=== PATIENT | male | born 1985 | race Caucasian/White ===

== ENCOUNTER 2021-04-12 08:15 | Emergency (ER) | payer BC, SELFPAY ==
[2021-04-12 08:16] VITALS: BP 120/90; PULSE 96; RESP 18; TEMP 36.9; O2SAT 98; BMI 27.1
--- NOTE | 2021-04-12 08:22 | XR_ITS ---
PROCEDURE: XR CHEST PORTABLE CLINICAL HISTORY: cough COMPARISON: No exams were available for comparison FINDINGS: The cardiomediastinal silhouette and pulmonary vascularity are within normal limits. The lungs are clear without infiltrates, suspicious nodules, or pleural effusions. No acute bony abnormalities. IMPRESSION: No acute findings. Dictated by: Get Mosher MD 04/12/2021 09:03 Get Mosher MD in [place] 04/12/2021 09:03
[2021-04-12 08:31] LABS: Influenza A, PCR Not Detected (NotDetected); Influenza B, PCR Not Detected (NotDetected)
--- NOTE | 2021-04-12 08:35 | HMH.EDFEV ---
ED Disposition Clinical Impression: Viral infection, COVID-19 Disposition: Home, Self-Care Condition on Discharge: Good Instructions: DI for COVID-19 (Suspected or Confirmed ) Referrals: Provider,Kameron, [Primary Care Provider] - Nelson Abdalla MD [Staff Physician] - - Critical Care Critical Care Time: No Attestation: On 04/12/21, the high probability of a clinically significant, sudden or life threatening deterioration of the following system(s) required my full and direct attention, intervention and personal management. The time I documented below is in addition to time spent performing reported procedures but includes the following listed in this critical care notation. Medical Decision Making - Medical Records Medical records reviewed: Yes: I reviewed the patient's medical records. - Louis Inquiry Pt receiving controlled substance: No Vital Signs: 04/12/21 08:16 Temperature 98.4 F Temperature Source Oral Pulse Rate [Radial] 96 H Respiratory Rate 18 Blood Pressure [Right Arm] 120/90 Blood Pressure Mean [Right Arm] 100 Blood Pressure Position [Right Arm] Sitting 02 Sat by Pulse Oximetry 98 Oxygen Delivery Method Room Air - Lab Data Lab Results 04/12/21 08:30: SARS-CoV-2 (PCR) Detected A, Influenza A Untype (PCR) Not detected, Influenza Type B (PCR) Not detected 04/12/21 08:40: WBC 5.9, RBC 5.76, Hgb 16.4, Hct 51.1, MCV 88.8, MCH 28.6, MCHC 32.2, RDW 13.1, Plt Count 268, MPV 6.5 L, Neut % (Auto) 66.7, Lymph % (Auto) 24.6, Yates % (Auto) 5.5, Eos % (Auto) 2.6, Baso % (Auto) 0.6, Neut # (Auto) 3.9, Lymph # (Auto) 1.5, Yates # (Auto) 0.3, Eos # (Auto) 0.2, Baso # (Auto) 0.0 04/12/21 08:40: Sodium 141, Potassium 4.4, Chloride 100, Carbon Dioxide 29, Anion Gap 16.4 H, BUN 10, Creatinine 1.40 H, Estimated Creat Clear 94, Estimated GFR 57 L, Est GFR ( Amer) 69, Glucose 101 H, Calcium 9.4, Total Bilirubin 0.5, AST 35, ALT 21, Alkaline Phosphatase 74, Total Protein 8.3 H, Albumin 4.8, Globulin 3.5 H, Albumin/Globulin Ratio 1.4 Result diagrams: 04/12/21 08:40 04/12/21 08:40 Orders (Tests/Meds): ED MEDICATIONS Generic Name Dose Route Start Last Admin Trade Name Freq PRN Reason Stop Dose Admin Sodium Chloride 1,000 mls @ 999 mls/hr 04/12/21 08:30 04/12/21 08:30 Sod Chlor 0.9% 1000ml Bag IV 04/12/21 09:30 999 mls/hr .[id number] EMMIE Administration Discontinued Medications Generic Name Dose Route Start Last Admin Trade Name Freq PRN Reason Stop Dose Admin Ketorolac Tromethamine 30 mg 04/12/21 08:22 04/12/21 08:30 Ketorolac 30mg/Ml Vial IV 04/12/21 08:23 30 mg ONCE ONE Administration - Radiology Data #1 Image(s): Chest Image Reviewed: Yes I reviewed the patient's radiology results, Yes I have reviewed radiologist's interpretation Preliminary Findings: Normal/NAD, No Infiltrates Seen - Reevaluation(s) Time: 09:16 Reevaluation #1: On reevaluation, the patient is feeling much better. Patient was positive for coronavirus. He is currently hemodynamically stable. No respiratory distress or hypoxia. Patient was given routine supplemental care precautions. Patient does need repeat examination in 48 hours. Given strict return precautions. Patient was also given current CDC guidelines for mandatory quarantine. Patient verbalized understanding. Medical Decision Narrative: 35-year-old male presenting with some myalgias, fever and cough. Patient symptoms appear to be consistent with a viral type syndrome. There is no respiratory distress. Hemodynamically stable. Afebrile. Work-up initiated. Fever HPI - General Chief Complaint: Fever Stated Complaint: flu symptoms Time Seen by Provider: 04/12/21 08:20 Mode of Arrival: Ambulatory Limitations: No Limitations Description of Symptoms (Recalled from ER Triage Doc. by RN): to ed per pvt car with c/o cough, fever, chills, generalized aches, headache starting monday. - History of Present Illness HPI Narra
[2021-04-12 08:54] LABS: Alanine Aminotransferase 21 U/L (12-78); Albumin Level 4.8 g/dl (3.5-5.0); Albumin/Globulin Ratio 1.4 (1.1-1.8); Alkaline Phosphatase 74 U/L (38-126); Anion Gap 16.4 mEq/L (5-15); Aspartate Amino Transferase 35 U/L (17-59); Bilirubin,Total 0.5 mg/dl (0.2-1.3); Blood Urea Nitrogen 10 mg/dl (9-20); Calcium 9.4 mg/dl (8.4-10.2); Carbon Dioxide 29 mmol/L (22.0-30.0); Chloride 100 mmol/L (98-107); Creatinine Clearance Estimated 94 mL/min (50-200); Estimated Glomerular Filt Rate 57 ml/min (>60); GFR (African American) 69 ML/MIN (>60); Globulin 3.5 g/dL (1.3-3.2); Glucose 101 mg/dl (74-100); Potassium 4.4 mmoL/L (3.5-5.1); Sodium 141 mmol/L (136-145); Total Protein,Serum 8.3 g/dl (6.3-8.2)
[2021-04-12 08:59] LABS: Basophils % 0.6 % (0.1-2.0); Eosinophils # 0.2 K/mm3 (0.0-0.4); Eosinophils % 2.6 % (0.1-12.0); Hematocrit 51.1 % (42.0-52.0); Hemoglobin 16.4 g/dL (14.1-18.0); Lymphocytes # 1.5 K/mm3 (0.7-4.5); Lymphocytes % 24.6 % (10-50); Mean Corpuscular HGB Conc 32.2 g/dL (31.8-35.4); Mean Corpuscular Hemoglobin 28.6 pg (27.0-31.2); Mean Corpuscular Volume 88.8 fl (80-94); Mean Platelet Volume 6.5 fl (7.4-10.4); Monocytes # 0.3 K/mm3 (0.1-1.0); Monocytes % 5.5 % (1.7-9.3); Neutrophils # 3.9 K/mm3 (1.8-7.8); Neutrophils % 66.7 % (37.0-80.0); Platelet Count 268 K/mm3 (142-424); Red Blood Count 5.76 M/mm3 (4.60-6.20); Red Cell Distribution Width 13.1 % (11.5-17.5); White Blood Count 5.9 K/mm3 (4.8-10.8)
[2021-04-12 08:59] LABS: Coronavirus 19, PCR Detected (NotDetected)
[2021-04-12 09:00] VITALS: BP 130/88; PULSE 88; RESP 18; TEMP 37.1; O2SAT 96
--- NOTE | 2021-04-12 09:01 | PC.NURSE ---
per billie in lab pt is covid positive, verified pt name and notified ER MD at this time
[2021-04-12 09:32] VITALS: BP 122/74; PULSE 88; RESP 18; TEMP 36.6; O2SAT 96
== END 2021-04-12 09:35 | disposition home or self-care (01) ==
PROVIDERS: Emergency Provider Emergency Medicine
DX: U07.1 COVID-19 (principal); B34.9 Viral infection, unspecified; J45.909 Unspecified asthma, uncomplicated; F17.210 Nicotine dependence, cigarettes, uncomplicated
CPT/HCPCS: 71045; 80053; 85025; 96365; 96375; 99283; U0003

== ENCOUNTER 2021-07-20 13:20 | Observation (INO) | payer BC, SELFPAY ==
[2021-07-20 14:32] VITALS: BP 115/69; PULSE 53; RESP 16; TEMP -12.5; TEMP 9.5; O2SAT 100; BMI 27.1
--- NOTE | 2021-07-20 14:54 | HMH.EDUTC ---
[facility] [place] Dis[place] Clinical Impression: Dyspnea, Dizziness Disposition: Still a Patient Condition on Discharge: Fair Referrals: Provider,Referral, [Primary Care Provider] - Time of Disposition: 14:59 Medical Decision Making - Medical Records Medical records reviewed: No: I reviewed the patient's medical records. - Louis Inquiry Pt receiving controlled substance: No Vital Signs: 07/20/21 14:32 Temperature 9.5 F L Temperature Source Temporal Artery Scan Pulse Rate [Right Brachial] 53 L Respiratory Rate 16 Blood Pressure [Right Arm] 115/69 Blood Pressure Mean [Right Arm] 84 Blood Pressure Source [Right Arm] Automatic Cuff Blood Pressure Position [Right Arm] Sitting 02 Sat by Pulse Oximetry 100 Oxygen Delivery Method Room Air Medical Decision Narrative: He was transferred to the ER due to his shortness of breath and dizziness. [facility] HPI - General Stated complaint: dizziness/faintness, soa Time Seen by Provider: 07/20/21 14:54 Mode of Arrival: Ambulatory Source of Information: Patient Limitations: No Limitations Description of Symptoms (Recalled from Triage Doc. by RN): dizziness-especially when standing for 2 days, shortness of breath today HEENT Symptoms (Recalled from RN notes): No Resp Symptoms (Recalled from RN notes): Yes Skin Symptoms (Recalled from RN notes): No MS Symptoms (Recalled from RN notes): No Functional Status (Recalled from RN notes): n/a - History of Present Illness Provider Complaint: He states that all today he has been very dizzy today and had some shortness of breath at times. He has also had a funny feeling in his left arm at times today. 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 - Related Data Home Medications Medication Instructions Recorded Confirmed No Known Home Medications 04/12/21 07/20/21 Allergies Allergy/AdvReac Type Severity Reaction Status Date / Time No Known Allergies Allergy Verified 07/20/21 14:38 - Worker's Comp Is this a Worker's Comp case?: No [facility] History - Hepatitis A Screen Drug use history?: No High risk sexual behaviors?: No History of sexually transmitted infection?: No Currently employed?: No Childcare worker?: No Do you have indoor plumbing?: Yes Do you have electricity?: Yes Attestation statement:: This patient has been screened for Hepatitis A risk factors. I have reviewed the patient's past medical history: Yes Medical History: Reports:: Asthma Denies:: Cancer, Diabetes Mellitus Type 1, Diabetes Mellitus Type 2, MRSA Other Surgeries: Yes: No Previous Surgery Amputation: No Fractures: No - Social History Smoking Status: Former smoker Tobacco Type: cigarettes Alcohol Intake: never Alcohol Intake Frequency:: holidays/special occasions only Occupational Status: employed Housing: house Household Members: spouse Family Hx:: No significant family history ROS Obtained: Yes All systems reviewed & no additional complaints - Constitutional Constitutional: Denies chills, Denies fever(s) - Eyes Eyes: Denies blind spots, Denies blurry vision, Denies change in vision, Denies diplopia - ENT Ears, Nose, Mouth, and Throat: Reports dizziness, Denies otalgia, Denies sinus pressure, Denies sore throat, Reports vertigo/dizziness - Cardiovascular Cardiovascular: Denies chest pain - Respiratory Respiratory: Denies chest congestion, Denies cough, Reports dyspnea - Gastrointestinal Gastrointestingal: Denies: abdominal pain, diarrhea, nausea, vomiting Physical Exam - General General appearance: alert, in no apparent distress - Head Head exam: atraumatic, normocephalic, normal inspection - Eye Eye exam: Present: normal appearance, PERRL, EOMI - ENT ENT exam: Present: normal exam, normal oropharynx, mucous membranes moist, TM's normal bilaterally, normal external ear exam - Neck Neck exam: Present: normal inspection, full ROM, trachea midline. Absent: meningismus, lymphadenopa
--- NOTE | 2021-07-20 14:55 | PC.NURSE ---
report given to Cassie DELA CRUZ by Modesta DELA CRUZ
[2021-07-20 15:10] VITALS: BP 126/77; PULSE 51; RESP 14; TEMP 36.8; O2SAT 98; BMI 27.1
[2021-07-20 15:46] LABS: Basophils # 0.1 K/mm3 (0-0.2); Basophils % 0.9 % (0.1-2.0); Eosinophils # 0.4 K/mm3 (0.0-0.4); Eosinophils % 5.9 % (0.1-12.0); Hematocrit 44.7 % (42.0-52.0); Hemoglobin 14.4 g/dL (14.1-18.0); Lymphocytes # 1.9 K/mm3 (0.7-4.5); Lymphocytes % 27.1 % (10-50); Mean Corpuscular HGB Conc 32.2 g/dL (31.8-35.4); Mean Corpuscular Hemoglobin 29.1 pg (27.0-31.2); Mean Corpuscular Volume 90.4 fl (80-94); Mean Platelet Volume 7.3 fl (7.4-10.4); Monocytes # 0.3 K/mm3 (0.1-1.0); Monocytes % 4.8 % (1.7-9.3); Neutrophils # 4.2 K/mm3 (1.8-7.8); Neutrophils % 61.4 % (37.0-80.0); Platelet Count 402 K/mm3 (142-424); Red Blood Count 4.94 M/mm3 (4.60-6.20); Red Cell Distribution Width 13.8 % (11.5-17.5); White Blood Count 6.8 K/mm3 (4.8-10.8)
[2021-07-20 15:49] LABS: Chloride 105 mmol/L (98-107); Sodium 142 mmol/L (136-145)
[2021-07-20 15:51] LABS: Alanine Aminotransferase 24 U/L (12-78); Aspartate Amino Transferase 41 U/L (17-59); Blood Urea Nitrogen 11 mg/dl (9-20); Creatinine Clearance Estimated 130 mL/min (50-200); Estimated Glomerular Filt Rate 84 ml/min (>60); GFR (African American) 102 ML/MIN (>60)
[2021-07-20 15:52] LABS: Albumin Level 4.5 g/dl (3.5-5.0); Albumin/Globulin Ratio 1.5 (1.1-1.8); Alkaline Phosphatase 72 U/L (38-126); Bilirubin,Total 0.2 mg/dl (0.2-1.3); Calcium 9.7 mg/dl (8.4-10.2); Carbon Dioxide 30 mmol/L (22.0-30.0); Globulin 3.1 g/dL (1.3-3.2); Glucose 100 mg/dl (74-100); Total Protein,Serum 7.6 g/dl (6.3-8.2)
--- NOTE | 2021-07-20 17:08 | ECG_ITS ---
APPROVED REPORT Exam: Resting ECG HR:44 bpm ECG Measurements Heart Rate 44 AXES AZ 114 P 8 QRSd 82 QRS 32 QT 446 T 20 QTc 381 Conclusion Marked sinus bradycardia Nonspecific T wave abnormality Abnormal ECG Electronically signed by : Omari El MD 07/21/2021 21:39:00
--- NOTE | 2021-07-20 17:41 | HMH.EDGENADL ---
ED Disposition Clinical Impression: Dizziness, Symptomatic bradycardia Disposition: Admitted as Observation Condition on Discharge: Fair Referrals: Provider,Referral, [Primary Care Provider] - Time of Disposition: 17:48 - Critical Care Critical Care Time: No Attestation: On 07/20/21, the high probability of a clinically significant, sudden or life threatening deterioration of the following system(s) required my full and direct attention, intervention and personal management. The time I documented below is in addition to time spent performing reported procedures but includes the following listed in this critical care notation. Medical Decision Making - Medical Records Medical records reviewed: Yes: I reviewed the patient's medical records. - Louis Inquiry Pt receiving controlled substance: No Vital Signs: 07/20/21 14:32 07/20/21 15:10 Temperature 9.5 F L 98.2 F Temperature Source Temporal Artery Scan Oral Pulse Rate [Right Brachial] 53 L 51 L Respiratory Rate 16 14 Blood Pressure [Right Arm] 115/69 126/77 Blood Pressure Mean [Right Arm] 84 93 Blood Pressure Source [Right Arm] Automatic Cuff Blood Pressure Position [Right Arm] Sitting 02 Sat by Pulse Oximetry 100 98 Oxygen Delivery Method Room Air - Lab Data Lab results reviewed: Yes: I reviewed the patient's lab results. Lab Results 07/20/21 15:15: WBC 6.8, RBC 4.94, Hgb 14.4, Hct 44.7, MCV 90.4, MCH 29.1, MCHC 32.2, RDW 13.8, Plt Count 402, MPV 7.3 L, Neut % (Auto) 61.4, Lymph % (Auto) 27.1, [place] % (Auto) 4.8, Eos % (Auto) 5.9, Baso % (Auto) 0.9, Neut # (Auto) 4.2, Lymph # (Auto) 1.9, [place] # (Auto) 0.3, Eos # (Auto) 0.4, Baso # (Auto) 0.1 07/20/21 15:15: Sodium 142, Potassium 4.0, Chloride 105, Carbon Dioxide 30, Anion Gap 11.0, BUN 11, Creatinine 1.00, Estimated Creat Clear 130, Estimated GFR 84, Est GFR ( Amer) 102, Glucose 100, Calcium 9.7, Total Bilirubin 0.2, AST 41, ALT 24, Alkaline Phosphatase 72, Total Protein 7.6, Albumin 4.5, Globulin 3.1, Albumin/Globulin Ratio 1.5 Result diagrams: 07/20/21 15:15 07/20/21 15:15 Orders (Tests/Meds): ORDERS Category Date Time Status Trop I [Troponin I] Stat Lab 07/20/21 15:15 Received - ECG Data Tracing #1 I reviewed this ECG and interpreted as documented below: 44 bpm, bradycardic, no ST elevation or depression, T wave inversion V3, V4, V5, V6. No ectopy. ECG initial impression date: 07/20/21 ECG initial impression time: 17:08 Medical Decision Narrative: 36yo M evaluated for lightheadedness and dizziness. Patient is in no acute distress on initial evaluation. Patient's heart rate on the monitor is in the 40s. EKG shows sinus bradycardia with inverted T waves as described above. X-ray is pending at this time. Lab work is benign, pending a troponin. Patient has no other history and therefore I doubt a positive troponin. Case discussed with Dr. Brown who agrees to admit the patient for further management and work-up. General Adult HPI - General Chief complaint: Dizziness Stated complaint: dizziness/faintness, soa Time Seen by Provider: 07/20/21 14:54 Mode of Arrival: Wheelchair Limitations: No Limitations Description of Symptoms (Recalled from ER Triage Doc. by RN): From [facility]. C/O dizziness and left arm feels funny - History of Present Illness HPI narrative: 36yo M without signet past medical history reports emergency department secondary to feeling lightheaded and weak x1 week. Denies previous episodes similar to this. Takes no medication. Denies taking any [id number] supplements. Denies any chest pain, shortness of breath, headache, visual change. No family history of cardiac disease. No personal history of cardiac disease. Patient used to smoke but quit several years ago. - Related Data Home Medications Medication Instructions Recorded Confirmed No Known Home Medications 04/12/21 07/20/21 Allergies Allergy/AdvReac Type Severity
--- NOTE | 2021-07-20 17:43 | PC.NURSE ---
dr hurst spoke with dr boykin pt to be admitted spoke with house sup regarding admission
--- NOTE | 2021-07-20 17:46 | XR_ITS ---
PROCEDURE INFORMATION: Exam: XR Chest Exam date and time: 07/20/2021 5:46 PM Age: 36 years old Clinical indication: Other: Badycardia; Additional info: Bradycardia TECHNIQUE: Imaging protocol: XR of the chest. Views: 1 view. COMPARISON: CR XR CHEST PORTABLE 04/12/2021 8:46 AM FINDINGS: Lungs: An 11 mm nodule is again seen in the mid right lung zone. No consolidation. Pleural spaces: Unremarkable. No pleural effusion. No pneumothorax. Heart/Mediastinum: Unremarkable. No cardiomegaly. Bones/joints: Unremarkable. IMPRESSION: Unchanged 11 mm nodule in the right mid lung zone since March. Recommend correlation with recent CT.
[2021-07-20 17:51] VITALS: BMI 27.1
[2021-07-20 17:53] LABS: Troponin I < 0.01 ng/ml (0.00-0.034)
--- NOTE | 2021-07-20 18:00 | PC.NURSE ---
report received from vic DELA CRUZ- AWAITING COVID TEST RESULTS
[2021-07-20 18:19] LABS: Coronavirus 19, PCR Not Detected (NotDetected); Influenza A, PCR Not Detected (NotDetected); Influenza B, PCR Not Detected (NotDetected)
[2021-07-20 19:45] VITALS: BP 120/75; PULSE 54; RESP 16; TEMP 36.8; O2SAT 98
--- NOTE | 2021-07-20 19:54 | PC.NURSE ---
PT ARRIVED TO FLOOR VIA W/C FROM ED W/STAFF AT 1954
[2021-07-20 20:00] VITALS: BP 131/78; PULSE 49; PULSE 50; RESP 17; TEMP 36.6; O2SAT 100
[2021-07-20 21:43] LABS: Troponin I < 0.01 ng/ml (0.00-0.034)
[2021-07-20 23:57] VITALS: BP 128/73; PULSE 55; RESP 16; TEMP 36.4; O2SAT 99
[2021-07-21] VITALS (18 sets, daily range): BP systolic 110–150; BP diastolic 61–97; PULSE 44–82; RESP 16–20; TEMP 36.5–36.8; O2SAT 94–100
--- NOTE | 2021-07-21 | IR_ITS ---
APPROVED REPORT Patient Location: Inpatient Freight Service Inspector: ROSHNI Arroyo RT (R) PROCEDURES Left heart catheterization Left ventriculogram Selective coronary angiogram INDICATION Unstable angina with profoundly abnormal EKG Informed consent was obtained prior to the procedure. COMPLICATIONS NONE Estimated Blood Loss: LESS THAN 10 ML TECHNIQUE One percent lidocaine used to anesthetize the right anterior aspect of the wrist. The right radial artery was accessed via the Seldinger technique. A 6 Arabic sheath was placed in the right radial artery. 2.5 mg of verapamil, 800 mcg of nitroglycerin, 1mg Lidocaine and 5000 U Heparin were given through the arterial sheath. The Poppa catheter was also used to perform left heart catheterization, left ventriculogram and selective coronary angiogram. At the end of the procedure the sheath was removed good hemostasis was achieved using Traclet band, patient was transferred to the postop holding area in stable condition. ANGIOGRAPHIC RESULTS The left main artery Normal The left anterior descending artery Normal The circumflex artery Normal The right coronary artery Dominant normal The BATEMAN ventriculogram reveals Normal 65% The left ventricular end-diastolic pressure 10 mmHg IMPRESSION Normal coronary arteries Normal ejection fraction Normal left ventricular end-diastolic pressure PLAN 1. Check thyroid panel to assess for etiologies of bradycardia 2. Echocardiogram 3. Evaluation of noncardiac symptoms Electronically signed by : Kishore Banerjee MD 07/21/2021 10:18:50
[2021-07-21 00:55] LABS: Troponin I < 0.01 ng/ml (0.00-0.034)
--- NOTE | 2021-07-21 04:53 | PC.NURSE ---
pt slept most of night. continuous telemetry monitoring noted sinus ingrid, upper 40's to low 50s. A&O x 4, NPO, cardiology consult today. V/S stable.
--- NOTE | 2021-07-21 07:10 | P.CONPHA_ITS ---
[facility] Pharmacy VTE Monitoring - Patient Demographics Admission date: 07/20/21 Report Date: 07/21/21 Time: 07:10 Allergies/Adverse Reactions: Patient Allergies No Known Allergies Allergy (Verified 07/20/21 14:38) Height: 1.83 m Weight: 90.718 kg Patient Problems: Current Active Problems Dizziness (Acute) Symptomatic bradycardia (Acute) - VTE Risk Labs: VTE Related Lab Results Hgb 14.4 g/dL (14.1-18.0) 07/20/21 15:15 Hct 44.7 % (42.0-52.0) 07/20/21 15:15 Plt Count 402 K/mm3 (142-424) 07/20/21 15:15 BUN 11 mg/dl (9-20) 07/20/21 15:15 Creatinine 1.00 mg/dl (0.66-1.25) 07/20/21 15:15 Estimated Creat Clear 130 mL/min (50-200) 07/20/21 15:15 Clinical Trial Participant: No - Prophylaxis VTE Prophylaxis Ordered?: Yes Types of VTE Prophylaxis: IPCS Knee High, Pharmacological Pharmacologic Type: Enoxaparin
[2021-07-21 07:29] LABS: Anion Gap 12.3 mEq/L (5-15); Blood Urea Nitrogen 11 mg/dl (9-20); Calcium 9.1 mg/dl (8.4-10.2); Carbon Dioxide 29 mmol/L (22.0-30.0); Chloride 105 mmol/L (98-107); Creatinine Clearance Estimated 130 mL/min (50-200); Estimated Glomerular Filt Rate 84 ml/min (>60); GFR (African American) 102 ML/MIN (>60); Glucose 101 mg/dl (74-100); Potassium 4.3 mmoL/L (3.5-5.1); Sodium 142 mmol/L (136-145)
[2021-07-21 07:42] LABS: Basophils % 0.8 % (0.1-2.0); Eosinophils # 0.5 K/mm3 (0.0-0.4); Eosinophils % 7.8 % (0.1-12.0); Hematocrit 42.1 % (42.0-52.0); Lymphocytes # 2.1 K/mm3 (0.7-4.5); Lymphocytes % 34.8 % (10-50); Mean Corpuscular HGB Conc 30.9 g/dL (31.8-35.4); Mean Corpuscular Volume 93.6 fl (80-94); Mean Platelet Volume 6.5 fl (7.4-10.4); Monocytes # 0.3 K/mm3 (0.1-1.0); Monocytes % 4.8 % (1.7-9.3); Neutrophils # 3.1 K/mm3 (1.8-7.8); Neutrophils % 51.8 % (37.0-80.0); Platelet Count 296 K/mm3 (142-424); Red Cell Distribution Width 13.1 % (11.5-17.5); White Blood Count 5.9 K/mm3 (4.8-10.8)
--- NOTE | 2021-07-21 08:17 | P.HP_ITS ---
*Admission Date: 07/20/21 <Silvana Ortiz 07/21/21 08:24> *Chief complaint: dizziness, near syncope <Silvana Ortiz 07/21/21 08:24> *History of present illness: Mr. Sirera is a 36-year-old male who began having some episodic dizziness approximately 1 week ago. He states he would sit down and it would go away. Yesterday he became dizzy and lightheaded and it did not resolve. 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 He began getting diaphoretic, short of breath, and had some left arm numbness. He had no chest pain. His therefore brought him to the emergency room for evaluation. His heart rate on the monitor in the ER was in the 40s and his EKG showed sinus bradycardia with inverted T waves. He has never had these episodes in the past and is generally healthy. He takes no medication. He denies any chest pain headache, or visual changes. He states he has a family history of bradycardia, but no cardiac disease. He used to smoke but quit several years ago. <Silvana Ortiz 07/21/21 08:24> [facility] History I have reviewed the patient's past medical history: Yes <Silvana Ortiz 07/21/21 08:24> Medical History: Reports:: Asthma, Palpitations Denies:: Cancer, Diabetes Mellitus Type 1, Diabetes Mellitus Type 2, MRSA <Silvana Ortiz 07/21/21 08:24> *Have you ever received a pneumonia vaccine?: No <Silvana Ortiz 07/21/21 08:24> *Have you received a flu vaccine this season?: Yes <Silvana Ortiz 07/21/21 08:24> Other Surgeries: Yes: Other (right hand surgery) <Silvana Ortiz 07/21/21 08:24> Amputation: No <Silvana Ortiz 07/21/21 08:24> Fractures: No <Silvana Ortiz 07/21/21 08:24> - *Social History Smoking Status: Former smoker <Silvana Ortiz 07/21/21 08:24> Tobacco Type: smokeless tobacco <Silvana Ortiz 07/21/21 08:24> Alcohol Intake: current <Silvana Ortiz 07/21/21 08:24> Alcohol Intake Frequency:: a few times a week <DianaSilvana 07/21/21 08:24> *Occupational Status:: employed <PopeyedarinSilvana Mayra 07/21/21 08:24> Housing: house <DianaSilvana 07/21/21 08:24> Household Members: spouse <PopeyedarinSilvana 07/21/21 08:24> *Travel in the last 8 weeks: None <PopeyeAvery webstera 07/21/21 08:24> Family Hx:: Cancer <PopeyedarinSilvana 07/21/21 08:24> Review of Systems - Constitutional Denies body ache(s), Denies chills, Denies weakness <DianaSilvana 07/21/21 08:24> - Eyes Denies blurry vision, Denies double vision <DianaSilvana 07/21/21 08:24> - ENT Denies nasal congestion, Denies sore throat <DianaSilvana 07/21/21 08:24> - *Cardiovascular Reports shortness of breath, Denies chest pain <PopeyedarinSilvana 07/21/21 08:24> - *Respiratory Denies cough, Denies shortness of breath <DianaSilvana 07/21/21 08:24> - *Gastrointestinal Denies abdominal pain, Denies nausea, Denies vomiting <DianaSilvana 07/21/21 08:24> - *Genitourinary Denies difficulty urinating, Denies painful urination <Silvana Ortiz 07/21/21 08:24> - *Musculoskeletal Denies joint pain <DianaSilvana 07/21/21 08:24> - *Neurologic Reports dizziness, Denies headache(s), Denies weakness <DianaSilvana 07/21/21 08:24> Meds Home Medications Medication Instructions Recorded Confirmed Type No Known Home Medications 04/12/21 07/20/21 History <Rubén Brown - 07/21/21 12:58> Allergies Allergy/AdvReac Type Severity Reaction Status Date / Time No Known Allergies Allergy Verified
--- NOTE | 2021-07-21 08:17 | HMH.HP ---
*Admission Date: 07/20/21 <Silvana Ortiz 07/21/21 08:24> *Chief complaint: dizziness, near syncope <Silvana Ortiz 07/21/21 08:24> *History of present illness: Mr. Sierra is a 36-year-old male who began having some episodic dizziness approximately 1 week ago. He states he would sit down and it would go away. Yesterday he became dizzy and lightheaded and it did not resolve. 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 He began getting diaphoretic, short of breath, and had some left arm numbness. He had no chest pain. His therefore brought him to the emergency room for evaluation. His heart rate on the monitor in the ER was in the 40s and his EKG showed sinus bradycardia with inverted T waves. He has never had these episodes in the past and is generally healthy. He takes no medication. He denies any chest pain headache, or visual changes. He states he has a family history of bradycardia, but no cardiac disease. He used to smoke but quit several years ago. <Silvana Ortiz 07/21/21 08:24> [facility] History I have reviewed the patient's past medical history: Yes <Silvana Ortiz 07/21/21 08:24> Medical History: Reports:: Asthma, Palpitations Denies:: Cancer, Diabetes Mellitus Type 1, Diabetes Mellitus Type 2, MRSA <Silvana Ortiz 07/21/21 08:24> *Have you ever received a pneumonia vaccine?: No <Silvana Ortiz 07/21/21 08:24> *Have you received a flu vaccine this season?: Yes <Silvana Ortiz 07/21/21 08:24> Other Surgeries: Yes: Other (right hand surgery) <Silvana Ortiz 07/21/21 08:24> Amputation: No <Silvana Ortiz 07/21/21 08:24> Fractures: No <Silvana Ortiz 07/21/21 08:24> - *Social History Smoking Status: Former smoker <Silvana Ortiz 07/21/21 08:24> Tobacco Type: smokeless tobacco <Silvana Ortiz 07/21/21 08:24> Alcohol Intake: current <DianaSilvana 07/21/21 08:24> Alcohol Intake Frequency:: a few times a week <Silvana Ortiz 07/21/21 08:24> *Occupational Status:: employed <PopeyeSilvaan webster 07/21/21 08:24> Housing: house <PopeyeSilvana webster 07/21/21 08:24> Household Members: spouse <Silvana Ortiz 07/21/21 08:24> *Travel in the last 8 weeks: None <Silvana Ortiz 07/21/21 08:24> Family Hx:: Cancer <Silvana Ortiz 07/21/21 08:24> Review of Systems - Constitutional Denies body ache(s), Denies chills, Denies weakness <Silvana Ortiz 07/21/21 08:24> - Eyes Denies blurry vision, Denies double vision <Silvana Ortiz 07/21/21 08:24> - ENT Denies nasal congestion, Denies sore throat <Silvana Ortiz 07/21/21 08:24> - *Cardiovascular Reports shortness of breath, Denies chest pain <Silvana Ortiz 07/21/21 08:24> - *Respiratory Denies cough, Denies shortness of breath <Silvana Ortiz 07/21/21 08:24> - *Gastrointestinal Denies abdominal pain, Denies nausea, Denies vomiting <Sivlana Ortiz 07/21/21 08:24> - *Genitourinary Denies difficulty urinating, Denies painful urination <Silvana Ortiz 07/21/21 08:24> - *Musculoskeletal Denies joint pain <Silvana Ortiz 07/21/21 08:24> - *Neurologic Reports dizziness, Denies headache(s), Denies weakness <Silvana Ortiz 07/21/21 08:24> Meds Home Medications Medication Instructions Recorded Confirmed Type No Known Home Medications 04/12/21 07/20/21 History <Rubén Brown - 07/21/21 12:58> Allergies Allergy/AdvReac Type Severity Reaction Status Date / Time No Known Allergies Allergy Verified 07/20/21 14:38 <Rubén Brown - 07/21/21 12:58> Exam Vital signs and Labs for Last 24 Hours: Temp Pulse Resp BP Pulse Ox 98.3 F 55 L 20 114/70 100 07/21/21 07:31 07/21/21 12:40 07/21/21 12:40 07/21/21 12:40 07/21/21 12:40 Laboratory Results - last 24 hr 07/20/21 15:15: WBC 6.8, RBC 4.94, Hgb 14.4, Hct 44.7, MCV 90.4, MCH 29.1, MCHC 32.2, RDW 13.8, Plt Count 402, MPV 7.3 L, Neut % (Auto) 61.4, Lymph % (Auto) 27.1, [place] % (
--- NOTE | 2021-07-21 08:57 | CA_ITS ---
APPROVED REPORT EXAM: Comprehensive 2D, Doppler, and color-flow Echocardiogram Deputy District Customs Director: Romina Bro RT(R) Ht: 6 ft 0 in Wt: 200lbs BSA: 2.13 BP: 000/00 mmHg Indications: Symptomatic bradycardia, dizziness, diaphoretic, SOA, lt arm numbness, heart cath today 2D Dimensions LVOT 2.19 cm (M/F) 1.5-2.5 LVEF (Styles's) 49.20 % M: 52 - 72 LV Volume 101.40 mL M: 62 - 150 LV Volume Index 47.60 mL/m2 M: 34 - 74 LA Volume 24.80 mL LA Volume Index 11.64 mL/m2 (M/F) 16-34 M-Mode Dimensions RVDd 3.01 cm (0.9-2.6) LA Diam 2.59 cm (1.9-4.0) LVDd 5.25 cm (3.5-5.7) Ao Diam 3.32 cm (2.0-3.7) LVDs 3.92 cm (3.5-5.7) IVSd 0.68 cm (0.6-1.1) PWd 0.76 cm (0.6-1.1) EF (Teich) 49.60% FS 25.30% EDV (Teich) 132.40 mL ESV (Teich) 66.70 mL LV Diastology E Decel Time 220.00 (160-240 msec) E/A Ratio 2.0 MED E' 11.00 (< 7 cm/sec) E'/MED E' Ratio 7.45 (>14) LAT E' 7.80 (<10 cm/sec) E/LAT E' Ratio 10.51 (>14) Mitral Valve MV E Max Julián. 82.00 (40-130 cm/s) MV A Velocity 40.00 (40-130 cm/s) E/A Ratio 2.07 MV Decel. Time 220.00 (160-240 ms) MV PHT 64.00 ms Left Ventricle Left atrium is normal size, left ventricle is normal size there is no concentric left ventricular hypertrophy, visually estimated ejection fraction 55% with no regional wall motion abnormality, diastolic parameters are within normal range. Right Ventricle Right atrium and right ventricle are normal size and contractility. Aortic Valve Aortic valve is minimally thickened and fibrosed, there is no aortic stenosis or aortic insufficiency. Mitral Valve Mitral valve is grossly normal, there is trace mitral regurgitation. Tricuspid Valve Tricuspid valve grossly normal, there is trace tricuspid regurgitation, tricuspid regurgitation jet velocity is inadequate for calculation of the right ventricular systolic pressure. Pulmonic Valve Pulmonic valve is poorly visualized Great Vessels Aortic root is normal size. Inferior vena cava is mildly dilated with normal inspiratory collapse. Pericardium No significant pericardial effusion noted. Conclusion 1. Normal left ventricular size, preserved left ventricular systolic function, visually estimated ejection fraction 55% with no regional wall motion abnormality, diastolic parameters are within normal range. 2. Trace mitral and tricuspid regurgitation. 3. No significant pericardial effusion 4. Inferior cava is mildly dilated with normal inspiratory collapse. Electronically signed by : Vic Mackey MD 07/22/2021 13:03:39
--- NOTE | 2021-07-21 08:58 | HMH.CNCARD ---
<Nay Valderrama - Last Filed: 07/21/21 08:58> History of Present Illness Consult date: 07/21/21 Requesting physician: Rubén Brown Consult reason: shortness of breath Chief complaint: dizziness History of present illness: This is a 36-year-old white gentleman who presented to the [facility] for dizziness that started approximately 1 week ago. The patient states that he was noticing he would get dizzy when he was standing up. He would sit down and his dizziness would resolve. He reports that yesterday the dizziness continued to persist and he did not feel well. It was associated with shortness of breath, diaphoresis and numbness in his left upper extremity. He denied any chest pain or pressure. 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 Because of his persistent symptoms his brought him to the [facility] for evaluation. He was found to be bradycardic and then sent to the emergency room for further evaluation and was subsequently admitted to the hospital. His EKG showed sinus bradycardia with a rate of 44 and diffuse T wave inversion. The patient denies any fever, chills, nausea, vomiting, diarrhea, PND or orthopnea. The patient reports that his father, sister and grandfather all have bradycardia but no other cardiac disease. The patient is a former tobacco user. [facility] History I have reviewed the patient's past medical history: Yes Medical History: Reports:: Asthma, Palpitations Denies:: Cancer, Diabetes Mellitus Type 1, Diabetes Mellitus Type 2, MRSA *Have you ever received a pneumonia vaccine?: No *Have you received a flu vaccine this season?: Yes Other Surgeries: Yes: No Previous Surgery, Other (right hand surgery) Amputation: No Fractures: No - *Social History Smoking Status: Former smoker Tobacco Type: smokeless tobacco Alcohol Intake: current Alcohol Intake Frequency:: a few times a week *Occupational Status:: employed Housing: house Household Members: spouse *Travel in the last 8 weeks: None Family Hx:: Cancer, Other (Bradycardia) Meds Home Medications Medication Instructions Recorded Confirmed Type No Known Home Medications 04/12/21 07/20/21 History Allergies Allergy/AdvReac Type Severity Reaction Status Date / Time No Known Allergies Allergy Verified 07/20/21 14:38 Exam Vital signs and Labs for Last 24 Hours: Temp Pulse Resp BP Pulse Ox 98.3 F 49 L 18 148/74 H 96 07/21/21 07:31 07/21/21 08:00 07/21/21 07:31 07/21/21 07:31 07/21/21 07:31 Laboratory Results - last 24 hr 07/20/21 15:15: WBC 6.8, RBC 4.94, Hgb 14.4, Hct 44.7, MCV 90.4, MCH 29.1, MCHC 32.2, RDW 13.8, Plt Count 402, MPV 7.3 L, Neut % (Auto) 61.4, Lymph % (Auto) 27.1, [place] % (Auto) 4.8, Eos % (Auto) 5.9, Baso % (Auto) 0.9, Neut # (Auto) 4.2, Lymph # (Auto) 1.9, [place] # (Auto) 0.3, Eos # (Auto) 0.4, Baso # (Auto) 0.1 07/20/21 15:15: Sodium 142, Potassium 4.0, Chloride 105, Carbon Dioxide 30, Anion Gap 11.0, BUN 11, Creatinine 1.00, Estimated Creat Clear 130, Estimated GFR 84, Est GFR ( Amer) 102, Glucose 100, Calcium 9.7, Total Bilirubin 0.2, AST 41, ALT 24, Alkaline Phosphatase 72, Total Protein 7.6, Albumin 4.5, Globulin 3.1, Albumin/Globulin Ratio 1.5 07/20/21 15:15: Troponin I < 0.01 07/20/21 17:45: SARS-CoV-2 (PCR) Not detected, Influenza A Untype (PCR) Not detected, Influenza Type B (PCR) Not detected 07/20/21 21:05: Troponin I < 0.01 07/21/21 00:16: Troponin I < 0.01 07/21/21 06:45: WBC 5.9, RBC 4.50 L, Hgb 13.0 L, Hct 42.1, MCV 93.6, MCH 29.0, MCHC 30.9 L, RDW 13.1, Plt Count 296 D, MPV 6.5 L, Neut % (Auto) 51.8, Lymph % (Auto) 34.8, [place] % (Auto) 4.8, Eos % (Auto) 7.8, Baso % (Auto) 0.8, Neut # (Auto) 3.1, Lymph # (Auto) 2.1, [place] # (Auto) 0.3, Eos # (Auto) 0.5 H, Baso # (Auto) 0.0 07/21/21 06:45: Sodium 142, Potassium 4.3, Chloride 105, Carbon Dioxide 29, Anion Gap 12.3, BUN 11, Creatinine 1.00, Estimated Creat Clear 130, Estimated GFR 84, Est GFR (Afric
[2021-07-21 09:09] LABS: Magnesium 1.8 mg/dl (1.6-2.3)
[2021-07-21 09:40] LABS: Thyroid Stimulating Hormone 1.91 uIU/mL (0.465-4.68)
--- NOTE | 2021-07-21 15:31 | HMH.DCSUM ---
General - General Admission date:: 07/20/21 <Rubén Brown - 08/14/21 23:16> 07/20/21 <Silvana Ortiz - 07/21/21 16:16> Discharge date: 07/21/21 <Silvana Ortiz - 07/21/21 16:16> HPI HPI: Mr. Sierra is a 36-year-old male who began having some episodic dizziness approximately 1 week ago. He states he would sit down and it would go away. Yesterday he became dizzy and lightheaded and it did not resolve. 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 He began getting diaphoretic, short of breath, and had some left arm numbness. He had no chest pain. His therefore brought him to the emergency room for evaluation. His heart rate on the monitor in the ER was in the 40s and his EKG showed sinus bradycardia with inverted T waves. He has never had these episodes in the past and is generally healthy. He takes no medication. He denies any chest pain headache, or visual changes. He states he has a family history of bradycardia, but no cardiac disease. He used to smoke but quit several years ago. <Silvana Ortiz - 07/21/21 16:16> Hospital Course Hospital Course: The patient was seen by cardiology and had a heart cath and echo which were unremarkable. They felt he was stable to be discharged with an event monitor and they will follow up with him in a week. <Silvana Ortiz - 07/22/21 16:15> Objective Vital signs: Temp Pulse Resp BP Pulse Ox 98.1 F 60 18 132/72 98 07/21/21 14:40 07/21/21 14:40 07/21/21 14:40 07/21/21 14:40 07/21/21 14:40 <KevinRubén Austin - 08/14/21 23:16> Temp Pulse Resp BP Pulse Ox 98.1 F 60 18 132/72 98 07/21/21 14:40 07/21/21 14:40 07/21/21 14:40 07/21/21 14:40 07/21/21 14:40 <Silvana Ortiz - 07/21/21 16:16> Narrative: - Constitutional no acute distress - *Routine HEENT Exam Head: Present: normocephalic Eye: Present: EOMI, PERRL ENT: Present: mucous membranes moist - *Routine Neck Exam Present: supple. Absent: lymphadenopathy - *Routine Respiratory Exam Present: CTA bilaterally - *Routine Cardiovascular Exam Present: RRR - *Routine Abdominal Exam Present: soft, normoactive bowel sounds. Absent: tenderness - *Routine Rectal Exam Rectal:: deferred - *Routine Genitalia Exam Genitalia:: deferred - *Routine Extremities Exam Absent: cyanosis, clubbing, edema - *Routine Skin Exam Present: warm. Absent: rash - *Routine Neurological Exam Present: alert, oriented X3, CN II-XII intact. Absent: sensory deficit, motor deficit <Silvana Ortiz - 07/22/21 16:15> Results Labs on day of discharge: Labs from last 24 hours 07/21/21 07/21/21 07/21/21 06:45 06:45 06:45 WBC RBC Hgb Hct MCV MCH MCHC RDW Plt Count MPV Neut % (Auto) Lymph % (Auto) [place] % (Auto) Eos % (Auto) Baso % (Auto) Neut # (Auto) Lymph # (Auto) [place] # (Auto) Eos # (Auto) Baso # (Auto) Sodium 142 Potassium 4.3 Chloride 105 Carbon Dioxide 29 Anion Gap 12.3 BUN 11 Creatinine 1.00 Estimated Creat Clear 130 Estimated GFR 84 Est GFR ( Amer) 102 Glucose 101 H Calcium 9.1 Magnesium 1.8 Total Bilirubin AST ALT Alkaline Phosphatase Troponin I Total Protein Albumin Globulin Albumin/Globulin Ratio TSH 1.91 Free T4 0.80 SARS-CoV-2 (PCR) Influenza A Untype (PCR) Influenza Type B (PCR) 07/21/21 07/21/21 07/20/21 06:45 00:16 21:05 WBC 5.9 RBC 4.50 L Hgb 13.0 L Hct 42.1 MCV 93.6 MCH 29.0 MCHC 30.9 L RDW 13.1 Plt Count 296 D MPV 6.5 L Neut % (Auto) 51.8 Lymph % (Auto) 34.8 [place] % (Auto) 4.8 Eos % (Auto) 7.8 Baso % (Auto) 0.8 Neut # (Auto) 3.1 Lymph # (Auto) 2.1 [place] # (Auto) 0.3 Eos # (Auto) 0.5 H Baso # (Auto) 0.0 Sodium
== END 2021-07-21 15:30 | disposition home or self-care (01) ==
LOC: UTC 14:59 → ER 15:00 → 2ND 17:56
PROVIDERS: Internal Medicine; Nurse Practitioner Family; Admitting Provider Family Medicine; Emergency Provider Family Medicine; Visit Provider Family Medicine
DX: I20.8 Other forms of angina pectoris (principal); R00.1 Bradycardia, unspecified; R20.0 Anesthesia of skin; R42 Dizziness and giddiness; R94.31 Abnormal electrocardiogram [ECG] [EKG]; F17.290 Nicotine dependence, other tobacco product, uncomplicated; R06.02 Shortness of breath; Z20.822 Contact with and (suspected) exposure to COVID-19
CPT/HCPCS: 36415; 71045; 80048; 80053; 83735; 84439; 84443; 84484; 85025; 93005; 93270; 93306; 93458; 96365; 96372; 99152; 99284; C1725; C1760; C1769; C9803; G0378; J1644; Q9967; U0003; U0005

== ENCOUNTER → 2021-09-07 10:14 | Outpatient (CLI) | payer BC, SELFPAY | PROVIDERS: Visit Provider Nurse Practitioner Family | DX: G47.30 Sleep apnea, unspecified (principal); R07.9 Chest pain, unspecified; R42 Dizziness and giddiness; R06.83 Snoring; R40.0 Somnolence; R53.83 Other fatigue | CPT/HCPCS: G0399 ==

== ENCOUNTER → 2021-09-29 09:45 | Outpatient (CLI) | payer BC, SELFPAY ==
[2021-09-29 10:37] LABS: Anion Gap 11.3 mEq/L (5-15); Blood Urea Nitrogen 11 mg/dl (9-20); Calcium 9.7 mg/dl (8.4-10.2); Carbon Dioxide 32 mmol/L (22.0-30.0); Chloride 101 mmol/L (98-107); Estimated Glomerular Filt Rate 75 ml/min (>60); GFR (African American) 91 ML/MIN (>60); Glucose 96 mg/dl (74-100); Potassium 4.3 mmoL/L (3.5-5.1); Sodium 140 mmol/L (136-145)
== END ==
PROVIDERS: Specialist; Visit Provider Physician Assistant
DX: I10 Essential (primary) hypertension (principal); R00.1 Bradycardia, unspecified; R06.83 Snoring; R07.9 Chest pain, unspecified; R40.0 Somnolence; R42 Dizziness and giddiness; R94.31 Abnormal electrocardiogram [ECG] [EKG]
CPT/HCPCS: 36415; 80048

== ENCOUNTER 2024-04-26 01:55 | Outpatient (CLI) | payer BC, SELFPAY | END 2024-04-26 23:59 | disposition home or self-care (01) | LOC: LAB.DROPOF 04-27 09:29 | PROVIDERS: PCP Student in an Organized Health Care Education/Training Program; Visit Provider Student in an Organized Health Care Education/Training Program | DX: J02.9 Acute pharyngitis, unspecified (principal); Z87.891 Personal history of nicotine dependence | CPT/HCPCS: 87070 ==

== ENCOUNTER 2025-01-06 16:22 | Outpatient (CLI) | payer BC, SELFPAY ==
[2025-01-06 16:50] LABS: Basophils % 0.5 % (0.1-2.0); Eosinophils # 0.2 Kmm3 (0.0-0.4); Eosinophils % 2.4 % (0.1-12.0); Hematocrit 42.8 % (42.0-52.0); Hemoglobin 14.1 g/dL (14.1-18.0); Lymphocytes # 2.1 K/mm3 (0.7-4.5); Lymphocytes % 33.3 % (10-50); Mean Corpuscular HGB Conc 32.9 g/dL (31.8-35.4); Mean Corpuscular Hemoglobin 29.1 pg (27.0-31.2); Mean Corpuscular Volume 88.4 fl (80-94); Mean Platelet Volume 8.5 fl (7.4-10.4); Monocytes # 0.5 K/mm3 (0.1-1.0); Monocytes % 7.2 % (1.7-9.3); Neutrophils # 3.6 K/mm3 (1.8-7.8); Neutrophils % 56.4 % (37.0-80.0); Nucleated Red Blood Cells # 0 10^3/uL; Nucleated Red Blood Cells % 0 %; Platelet Count 321 K/mm3 (142-424); Red Blood Count 4.84 M/mm3 (4.60-6.20); Red Cell Distribution Width 12.8 % (11.5-17.5); Red Cell Distribution Width-SD 41.7 fL; White Blood Count 6.4 K/mm3 (4.8-10.8)
[2025-01-06 18:18] LABS: Albumin Level 4.3 g/dl (3.5-5.0); Chloride 106 mmol/L (98-107); Potassium 4.4 mmoL/L (3.5-5.1); Sodium 141 mmol/L (136-145)
[2025-01-06 18:20] LABS: Bilirubin,Unconjugated 0.3 mg/dL (0.0-1.1); Blood Urea Nitrogen 14 mg/dl (9-20); Estimated Glomerular Filt Rate 67 ml/min (>60); GFR (African American) 81 ML/MIN (>60)
[2025-01-06 18:21] LABS: Alanine Aminotransferase 22 U/L (12-78); Alkaline Phosphatase 67 U/L (38-126); Anion Gap 11.4 mEq/L (5-15); Aspartate Amino Transferase 31 U/L (17-59); Bilirubin,Direct 0.1 mg/dl (0.0-0.4); Bilirubin,Indirect 0.2 mg/dL (0.0-0.9); Bilirubin,Total 0.3 mg/dl (0.2-1.3); Calcium 9.5 mg/dl (8.4-10.2); Carbon Dioxide 28 mmol/L (22.0-30.0); Chol/HDL Ratio 5.6 (1-3.5); Cholesterol 235 mg/dl (140-200); Glucose 102 mg/dl (74-100); HDL Cholesterol 42 mg/dl (40-60); Total Protein,Serum 7.1 g/dl (6.3-8.2); Triglycerides 182 mg/dl (30-150); VLDL Cholesterol 36 mg/dL (0-40)
[2025-01-06 18:32] LABS: Direct LDL Cholesterol 137.87 mg/dL (100-129)
[2025-01-06 18:41] LABS: Free T4 (Free Thyroxine) 0.78 ng/dl (0.78-2.19)
[2025-01-06 18:52] LABS: Thyroid Stimulating Hormone 1.23 uIU/mL (0.465-4.68)
== END 2025-01-06 23:59 | disposition home or self-care (01) ==
LOC: LAB 16:23
PROVIDERS: Visit Provider Internal Medicine
DX: I10 Essential (primary) hypertension (principal)
CPT/HCPCS: 36415; 80048; 80061; 80076; 84439; 84443; 85025